=== PATIENT | female | born 1945 | race Caucasian/White ===

== ENCOUNTER 2019-07-31 06:25 | Day surgery (SDC) | payer MEDICARE ==
[~2019-07-31] VITALS: Ht 170.2 cm; Wt 87.5 kg
[~2019-07-31 06:25] MED LIST: ANTIVERT PO; ANTIVERT12.5 MG PO; B121000 MCG PO; BASAGLAR K100 UNIT/M SC; FLONASE NASAL50 MCG; GABAPENTIN100 MG PO; GLYBURID MCR3 MG PO; JANUVIA50 MG PO; LOPID600 MG PO; METFORMIN500 MG PO; NESINA25 MG PO; OMEPRAZOLE10 MG PO; PRED FORTE1 % OU; PRILOSEC40 MG PO; SUMATRIPTAN25 MG PO; VICTOZA18 MG/3 ML SC; XANAX0.25 MG OR
[2019-07-31] MEDS ORDERED: PERCOCET 10/31 COMBO PO (09:11)
[2019-07-31 10:10] VITALS: BP 104/55
== END 2019-07-31 10:00 | disposition home or self-care (01) ==
LOC: ORM 06:25
PROVIDERS: ATTEND Orthopaedic Surgery
PROC: 01N50ZZ Release Median Nerve, Open Approach (ICD-10-PCS; principal; 2019-07-31)
DX: G56.02 Carpal tunnel syndrome, left upper limb (principal); E11.9 Type 2 diabetes mellitus without complications; Z87.891 Personal history of nicotine dependence